=== PATIENT | male | born 1985 | race Caucasian/White ===

== ENCOUNTER 2016-10-10 10:34 | Emergency (ER) | payer MEDICAID ==
--- NOTE | 2016-10-10 10:57 | EDPHY ---
H & P Stated Complaint: constipation x 4 days/nl measures not working Time Seen by Provider: 10/10/16 10:56 HPI/ROS: CHIEF COMPLAINT: Constipation HISTORY OF PRESENT ILLNESS: The patient presents to the ED with an acute exacerbation of chronic constipation. His symptoms have been present for the past week. He has had 1 bowel movement. The patient has been taking Iuka oral with limited improvement. The patient did do a saline enema prior to arrival without successful passage of stool. The patient denies any nausea or vomiting. The patient has had a history of chronic intestinal issues since he was a young man. He has had extensive workup by Gastroenterology. The patient does have a prior history of cholecystectomy. REVIEW OF SYSTEMS: A comprehensive 10 point review of systems is otherwise negative aside from elements mentioned in the history of present illness. Source: Patient Exam Limitations: No limitations - Personal History Current Tetanus/Diphtheria Vaccine: Yes - Medical/Surgical History Hx Asthma: No Hx Chronic Respiratory Disease: No Hx Diabetes: No Hx Cardiac Disease: No Hx Renal Disease: No Hx Cirrhosis: No Hx Alcoholism: No Hx HIV/AIDS: No Hx Splenectomy or Spleen Trauma: No Other PMH: chronic constipation - Social History Smoking Status: Never smoked - Physical Exam Exam: General Appearance: Alert, no distress Eyes: Pupils equal and round no pallor or injection ENT, Mouth: Mucous membranes moist Respiratory: There are no retractions, lungs are clear to auscultation Cardiovascular: Regular rate and rhythm Gastrointestinal: Minimal tenderness to palpation in left lower quadrant, no peritoneal signs, decreased bowel sounds Neurological: A&O, normal motor function, normal sensory exam, normal cranial nerves Skin: Warm and dry, no rashes Musculoskeletal: Neck is supple nontender Extremities: symmetrical, full range of motion Constitutional: Initial Vital Signs Temperature (C) 36.4 C 10/10/16 10:38 Heart Rate 60 10/10/16 10:38 Respiratory Rate 17 10/10/16 10:38 Blood Pressure 111/71 10/10/16 10:38 O2 Sat (%) 97 10/10/16 10:38 O2 Delivery Mode Room Air Allergies/Adverse Reactions: Penicillins Allergy (Verified 10/10/16 10:38) Home Medications: Medication Instructions Recorded Iuka Oil 10/10/16 Saline Enema 10/10/16 Medical Decision Making - Diagnostics Imaging Results: Imaging Impressions Abdomen X-Ray 10/10/16 10:57 Impression: No source for abdominal pain identified. ED Course/Re-evaluation: The patient presents to the ED with reported constipation for the past several days. His abdominal x-ray demonstrates no evidence of a perforation or obstruction. The patient did have mild stool noted on that exam. The patient received a soapsuds enema with a watery bowel movement which followed. I re-evaluated the patient at 12:30 p.m.. At this point time I do feel this patient can be discharged home. He has no abdominal tenderness. He has a reassuring x-ray. His vital signs are stable. Differential Diagnosis: Differential diagnosis considered includes bowel perforation, obstruction, constipation Departure - Departure Disposition: Home, Routine, Self-Care Clinical Impression: Constipation Condition: Good Instructions: Constipation (ED) Additional Instructions: 1. Magnesium citrate or milk of magnesia as needed for recurrent constipation. 2. Please follow up with your primary care provider as needed. 3. Please return to the ED for severe abdominal pain, vomiting, fever or other concerns.
[2016-10-10 12:31] VITALS: BP 130/70; PULSE 80; RESP 14; TEMP 98.4; O2SAT 94
== END 2016-10-10 12:30 | disposition home or self-care (01) ==
DX: K59.00 Constipation, unspecified (principal); Z88.0 Allergy status to penicillin

== ENCOUNTER 2016-11-20 10:18 | Emergency (ER) | payer MEDICAID ==
[2016-11-20 10:22] VITALS: O2SAT 95
--- NOTE | 2016-11-20 10:24 | EDPHY ---
H & P Stated Complaint: RUNNY NOSE COUGH HEADACHE NAUSEA 5 DAYS HPI/ROS: CHIEF COMPLAINT: Nasal congestion HISTORY OF PRESENT ILLNESS: The patient is a 31-year-old male presenting with 5 days of nasal congestion. Patient reports sinus tenderness, nasal drainage, and productive cough. He has associated nausea, lightheadedness, headache, sore throat. The patient reports feeling feverish, but has not taken his temperature. He wakes up feeling lightheaded and nauseated. His symptoms usually improve slightly during the day and return at night. The patient is going to have deviated septum repaired soon. He denies chest pain, shortness of breath, vomiting, or diarrhea. REVIEW OF SYSTEMS: A ten point review of systems was performed and is negative with the exception of the items mentioned in the HPI. Past medical history: Chronic digestion issues, Deviated septum Past surgical history: Denies. Family history: Noncontributory. Social history: Works as mental health concrete inspector. Nonsmoker. No alcohol use. No illicit drug use. General Appearance: Alert. Vital signs reviewed. Eyes: Pupils equal and round, no conjunctival injection, no discharge. Anicteric. ENT, Mouth: Mucous membranes are moist, no oropharyngeal erythema or edema. Post nasal drainage. Ears: No mastoid tenderness. Neck: Anterior cervical lymph nodes. Respiratory: Lungs are clear to auscultation; no wheezes, rales, or rhonchi. Cardiovascular: Regular rate and rhythm; no murmur, rub, or gallop. Gastrointestinal: Abdomen is soft and nontender, no masses or organomegaly, bowel sounds normal. Skin: Warm and dry, no rashes on exposed skin, normal color. Back: Nontender to palpation over the thoracolumbar spine. No CVAT. Extremities: No lower extremity edema, no calf tenderness or swelling. Neurological: Alert and oriented. Moving all four extremities easily and equally. Psychiatric: Normal affect. Source: Patient - Personal History Current Tetanus/Diphtheria Vaccine: Yes Current Tetanus Diphtheria and Acellular Pertussis (TDAP): Yes - Medical/Surgical History Hx Asthma: No Hx Chronic Respiratory Disease: No Hx Diabetes: No Hx Cardiac Disease: No Hx Renal Disease: No Hx Cirrhosis: No Hx Alcoholism: No Hx HIV/AIDS: No Hx Splenectomy or Spleen Trauma: No Other PMH: chronic constipation - Social History Smoking Status: Never smoked Constitutional: Initial Vital Signs Temperature (C) 36.6 C 11/20/16 10:19 Heart Rate 72 11/20/16 10:19 Respiratory Rate 18 11/20/16 10:19 Blood Pressure 116/70 11/20/16 10:19 O2 Sat (%) 95 11/20/16 10:19 O2 Delivery Mode Room Air Allergies/Adverse Reactions: Penicillins Allergy (Verified 11/20/16 10:22) Hives Home Medications: Medication Instructions Recorded AZITHROMYCIN [Z-PACK] 250 mg PO DAILY #6 tab 11/20/16 Medical Decision Making ED Course/Re-evaluation: Patient presents with 5 days of sinus congestion with associated headache, lightheadedness, nausea, and sore throat. Strep swab sent. Strep screen is negative. Plan to discharge patient home with antibiotics for sinusitis. He understands that this could be a viral infection in that antibiotics may not be efficacious. Symptomatic measures discussed with him also. Differential Diagnosis: I considered a differential diagnosis that includes but is not limited to sinusitis, otitis media, pharyngitis, URI, bronchitis, and pneumonia. Departure - Departure Disposition: Home, Routine, Self-Care Clinical Impression: Sinusitis Qualifiers: Sinusitis location: maxillary Chronicity: acute Recurrence: non-recurrent Qualified Code(s): J01.00 - Acute maxillary sinusitis, unspecified Condition: Good Instructions: Sinusitis (ED) Additional Instructions: 1. Take full course of antibiotics as directed. 2. Drink plenty of fluids. 3. Followup with your primary care physician as needed. Referrals: JEANNINE DIXON [Primary Care Provider] - As per Instructions Prescriptions: AZITHROMYCIN [Z-PACK] 250 mg PO DAILY #6 tab Report Scribed for: Brenda Matt Report Scribed by: Erna Paige Date of Report: 11/20/16 Physician Review and Approval Statement: 11/20/16 10:24 Portions of this note were transcribed by the medical laboratory specialist. I, Dr. Brenda Matt, personally performed the history, physical exam, and medical decision- making; and confirmed the accuracy of the information in the transcribed note.
[2016-11-20 12:25] VITALS: BP 108/55; PULSE 53; RESP 16
[2016-11-20 12:59] VITALS: TEMP 97.7
== END 2016-11-20 12:59 | disposition home or self-care (01) ==
DX: J01.00 Acute maxillary sinusitis, unspecified (principal)

== ENCOUNTER 2016-12-10 11:18 | Day surgery (SDC) | payer MEDICAID ==
--- NOTE | 2016-12-10 09:10 | PDHPUP ---
History & Physical Update H&P update statement: This history and physical update is based on an assessment of the patient which was completed after admission or registration (within 24 hours), but prior to the surgery/procedure. H&P update: H&P reviewed & patient examined (plan for septoplasty, SMR turbs, nasal endoscopy)
[~2016-12-10 11:18] MED LIST: CLINDAMYCIN 900 MG/DEXTROSE 50 ML IV ONE
[2016-12-10] MEDS ORDERED: LIDOCAINE 1% 2 ML INJ ONE (11:48)
[2016-12-10] MEDS ORDERED: LR 1,000 ML IV ONE (11:50)
[2016-12-10] MEDS ORDERED: LIDOCAINE 1% 2 ML INJ ID PRN (11:50)
[2016-12-10] MEDS ORDERED: CLINDAMYCIN 900 MG/DEXTROSE/50 ML BAG IV ONE (11:53)
[2016-12-10] MEDS ORDERED: OXYMETAZOLINE 30 ML NASAL SPRAY ONE (11:59)
[2016-12-10] MEDS ORDERED: LIDO/EPI 1% **Not for Epidural 20 ML MDV ONE (11:59)
[2016-12-10] MEDS ORDERED: METHYLENE BLUE 0.5% 50 MG/10 ML AMP ONE (11:59)
[2016-12-10] MEDS ORDERED: BACITRACIN ZINC 14.2 GM OINTTUBE TP ONE (11:59)
--- NOTE | 2016-12-10 12:41 | PDANEPAE ---
ANE History of Present Illness nasal fracture ANE Past Medical History - Cardiovascular History Hx Hypertension: No Hx Arrhythmias: No Hx Chest Pain: No Hx Coronary Artery / Peripheral Vascular Disease: No Hx CHF / Valvular Disease: No Hx Palpitations: No - Pulmonary History Hx COPD: No Hx Asthma/Reactive Airway Disease: No Hx Recent Upper Respiratory Infection: No Hx Oxygen in Use at Home: No Hx Sleep Apnea: No Sleep Apnea Screening Result - Last Documented: Negative - Neurologic History Hx Cerebrovascular Accident: No Hx Seizures: No Hx Dementia: No - Endocrine History Hx Diabetes: No - Renal History Hx Renal Disorders: No - Liver History Hx Hepatic Disorders: No - Neurological & Psychiatric Hx Hx Neurological and Psychiatric Disorders: No - Cancer History Hx Cancer: No - Congenital Disorder History Hx Congenital Disorders: No - GI History Hx Gastrointestinal Disorders: Yes Gastrointestinal History Comment: "weak digestion", constipation - Other Health History Other Health History: nasal obstruction,deviated septum. - Chronic Pain History Chronic Pain: No - Surgical History Prior Surgeries: lap zina age 24. cyst excision -abd ANE Review of Systems Review of Systems: - Exercise capacity METS (RN): 5 METS ANE Patient History - Allergies Allergies/Adverse Reactions: Penicillins Allergy (Verified 11/20/16 10:22) Hives - NPO status NPO Since - Liquids (Date): 12/10/16 NPO Since - Liquids (Time): 11:30 NPO Since - Solids (Date): 12/09/16 NPO Since - Solids (Time): 23:55 - Smoking Hx Smoking Status: Never smoked ANE Labs/Vital Signs - Vital Signs Blood Pressure: 110/77 Heart Rate: 52 Respiratory Rate: 16 O2 Sat (%): 97 Height: 170.18 cm Weight: 63.503 kg ANE Physical Exam - Airway Mallampati Score: Class 1 Mouth exam: normal dental/mouth exam - Pulmonary Pulmonary: no respiratory distress - Cardiovascular Cardiovascular: regular rate and rhythym - ASA Status ASA Status: II ANE Anesthesia Plan Anesthesia Plan: general endotracheal anesthesia
[2016-12-10] MEDS ORDERED: ROCURONIUM 50 MG/5 ML VIAL ONE (12:47)
[2016-12-10] MEDS ORDERED: PROPOFOL 200 MG/20 ML VIAL ONE ×2 (12:48)
[2016-12-10] MEDS ORDERED: fentaNYL 100 MCG/2 ML INJ ONE ×2 (12:48)
[2016-12-10] MEDS ORDERED: NALOXONE HCL 0.4 MG/ML INJ IVP PRN (14:04)
[2016-12-10] MEDS ORDERED: ACETAMINOPHEN 500 MG TAB PO PRN (14:04)
[2016-12-10] MEDS ORDERED: LABETALOL HCL 50 MG/10 ML SYR IVP PRN (14:04)
--- NOTE | 2016-12-10 15:14 | POSTOPPROG ---
Post Op Note Date of Operation: 12/10/16 Surgeon: Xiomara Lewis Anesthesiologist: benedicto Anesthesia: GET(General Endotracheal) Pre-op Diagnosis: nasal obstruction, DNS Post-op Diagnosis: same Procedure: endoscopically assisted septoplasty, SMR turbs Findings: severely dev septum, buckled mid septum, large spur L Inf/Abcess present in the surg proc area at time of surgery?: No EBL: Minimal Complications: none apparent
--- NOTE | 2016-12-10 15:16 | POSTANESTH ---
Post Anesthetic Evaluation Cardiovascular Status: Normal, Stable Respiratory Status: Normal, Stable Level of Consciousness/Mental Status: Can Participate in Eval Pain Control: Adequate, Prn Tx Ordered Nausea/Vomiting Control: Adequate, Prn Tx Ordered Complications Possibly Related to Anesthesia: None Noted
[2016-12-10] MEDS ORDERED: ACETAMINOPHEN 500 MG TAB ONE (15:33)
[2016-12-10 16:29] VITALS: RESP 16; TEMP 97.9
[2016-12-10 16:39] VITALS: BP 104/69; O2SAT 93
[2016-12-10 17:26] VITALS: PULSE 80
--- NOTE | 2016-12-12 05:31 | GOP ---
[f rep st] OPERATIVE REPORT DATE OF OPERATION: 12/10/2016 SURGEON: Xiomara Lewis MD ANESTHESIA: General. PREOPERATIVE DIAGNOSIS: 1. Nasal obstruction. 2. Deviated nasal septum. 3. Inferior turbinate hypertrophy. POSTOPERATIVE DIAGNOSIS: 1. Nasal obstruction. 2. Deviated nasal septum. 3. Inferior turbinate hypertrophy. PROCEDURE PERFORMED: 1. Endoscopically assisted septoplasty. 2. Submucous resection of the inferior turbinates bilaterally. 3. Nasal endoscopy. FINDINGS: The patient is found to have an S-shaped septum, was significantly deviated to the left al most 100%. He had a buccal septal cartilage over a large spur to the left side and then he also had a large spur inferiorly on the right. He had significantly increased patency bilaterally after the s eptoplasty. He did have enlarged turbinates on both sides and these were taken down with improvement as well. ESTIMATED BLOOD LOSS: Minimal. DESCRIPTION OF PROCEDURE: The patient was first seen in the preoperative area, where informed consen t was obtained. He was then brought back to the operating room, where Anesthesia sedated and intubat ed him. A universal time-out was performed. Once this had been confirmed, anterior rhinoscopy was p erformed and I noted the above-noted findings with a severely deviated septum to the left that is 90% obstructing and then somewhat buckled looking septum on the right with a spur inferiorly. Epi soaked pledgets were placed within the nares bilaterally for vasoconstriction and once this had sufficient time to act, this was removed. After this was removed, the septum on both sides was injected with 1% lidocaine with 1:100,000 epinephrine, as well as the head of the inferior turbinates bilaterally wit h a total of 8 cc. At this point, the patient was then prepped and draped in a normal fashion and a left-sided hemitransfixion incision was performed. A caudal elevator was used to elevate the mucoper ichondrial flap. The flap was significantly bent secondary to the bone of the cartilage and the cart ilage was very weak and buckled about a cm posterior to the hemitransfixion incision. At this point, it was easier to go ahead and make an incision in the cartilage about 10 mm from the caudal edge of the septum and then, a mucoperichondrial flap was elevated past this area on both sides, and then, Tr uCut was used to take down some of the intervening cartilage. Once this was done, I was able to visu renetta this better and he had severely buckled cartilage that was buckled on top onto itself to the le ft and he had a very large spur that was sitting on the buccal to the left as well. So, at this poin t, subperichondrial flaps were elevated on both sides back to the bony cartilaginous junction and pas sed this area. The buccal cartilage that was deviating the most to the left was taken down 1st with a D knife, as well as removing a large portion of this cartilage, taking care to leave at least a 10 mm strut dorsally and caudally. Once this was done, I was able to visualize a little bit better and 0-degree endoscope was used through the hemitransfixion incision and helped elevate the flaps posteri harley on both sides. The spur that started on the left, extended more posteriorly and superiorly as i t went further back on the septum. The double-action rongeur, as well as other instruments were used to take down the intervening bone until it was midline. At this point, the septal spur inferiorly o n the left was evaluated. The zero-degree scope was removed and then using a caudal instrument and a speculum, the mucoperichondrial flap was elevated off the spur onto the floor on both sides until I had this completely isolated and a 3 mm osteotome was used to take down this spur off the maxillary c rest. At this point, he had a significantly more patent nasal cavity on both sides. The septum was midline and I was able to see the root of the middle turbinate on both sides with anterior rhinoscopy . So, at this point, the 5-0 plain gut on a [place] needle was used to place quilting sutures through and through the septum and then, a 4-0 chromic was used to close the hemitransfixion incision in a st andard fashion. At this point, I then used the 0-degree scope to evaluate the nasal cavity on both s ides. This had been done preoperatively. He was still noted to have some narrowing secondary to an enlarged turbinate, more on the right than the left. So, the 2 mm turbinate blade was placed, and th en a small stab incision was made 1st on the right through the head of the inferior turbinate and the n, a 0-degree scope was used to perform direct visualization while the submucous resection was perfor med along the length of the turbinate. Once this was done, this was removed and then, I did the exac t same thing on the left side. The turbinate blade was removed and then a [place] instrument was used to infracture and mobilize the inferior turbinate and then tax accounting assistant instrument was used to outfractu re the bone on both sides, giving significantly more patency. So, at this point, the nasal cavity was irrigated out copiously with normal saline and suctioned clear. There was no sign of significant ac tive bleeding. Isbell splints that were cut to size were placed on either side of the septum and sutu red into place through the caudal portion of the septum with a 3-0 Prolene stitch. Epi soaked pledge ts were placed within the nares bilaterally until the patient was extubated and then they were taken out to PACU. The patient was turned back over to Anesthesia, where he was awakened and extubated, an d taken to PACU in stable condition. There were no complications. He tolerated the procedure well a nd all instrument and pledget counts were correct at the end of the procedure. SURGEON: Xiomara Lewis MD. COMPLICATIONS: None. /[id number]/MODL
== END 2016-12-10 17:11 | disposition home or self-care (01) ==
LOC: FSGY 11:18
PROVIDERS: ATTEND Otolaryngology
PROC: 09QM4ZZ Repair Nasal Septum, Percutaneous Endoscopic Approach (ICD-10-PCS; principal; 2016-12-10 12:30)
PROC: 09TL8ZZ Resection of Nasal Turbinate, Via Natural or Artificial Opening Endoscopic (ICD-10-PCS; principal; 2016-12-10 12:30)
DX: J34.89 Other specified disorders of nose and nasal sinuses (principal); J34.2 Deviated nasal septum; J34.3 Hypertrophy of nasal turbinates
CPT/HCPCS: J0171; J2704; J3010; Q9968